=== PATIENT | male | born 2000 | race Hispanic/Latino ===

== ENCOUNTER 2019-03-02 18:43 | Emergency (ER) | payer OTHER, SELFPAY ==
[2019-03-02 18:44] VITALS: BP 142/85; PULSE 98; RESP 18; TEMP 36.6; O2SAT 99; BMI 24.0
--- NOTE | 2019-03-02 19:09 | RAD_ITS ---
STUDY: X-RAY - RIGHT WRIST REASON FOR EXAM: Male, 18 years old. Pain TECHNIQUE: 3 view(s) of the wrist were obtained. COMPARISON: None. FINDINGS: There is no evidence of fracture or dislocation. There are no significant degenerative changes. There are no radiodense foreign bodies. RAD/Wrist min 3 Views IMPRESSION: No fracture or dislocation. Electronically Signed: William Hart, at 19:59 EDT Tel , Service support ,
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
[2019-03-02 21:36] VITALS: BP 130/78; PULSE 70; RESP 14; O2SAT 100
== END 2019-03-02 21:38 | disposition home or self-care (01) ==
PROVIDERS: Emergency Provider Emergency Medicine
DX: S63.501A Unspecified sprain of right wrist, initial encounter (principal); S50.312A Abrasion of left elbow, initial encounter; S80.212A Abrasion, left knee, initial encounter; S80.211A Abrasion, right knee, initial encounter; S70.311A Abrasion, right thigh, initial encounter; S60.811A Abrasion of right wrist, initial encounter; V18.4XXA Pedal cycle driver injured in noncollision transport accident in traffic accident, initial encounter; Y93.55 Activity, bike riding; Y92.9 Unspecified place or not applicable
CPT/HCPCS: 73110; 99283